=== PATIENT | male | born 1955 | race Caucasian/White ===

== ENCOUNTER → 2016-07-29 | Outpatient (CLI) | payer OTHER ==
--- NOTE | 2016-07-29 12:13 | MR ---
EXAMINATION TYPE: MR shoulder LT wo con DATE OF EXAM: 07/29/2016 8:14 AM COMPARISON: NONE HISTORY: 60-year-old male with left shoulder pain TECHNIQUE: Multiplanar, multisequence imaging of the left shoulder is performed without contrast. FINDINGS: There is some intermediate signal within the intracapsular portion of the long head biceps tendon. No daron tear is identified. Mild fluid seen along its tendon sheath. There is some inhomogeneous signal especially in the superior half of the subscapularis tendon. The m ajority of the subscapularis tendon appears intact. There is mild to moderate degenerative joint space narrowing with marginal spurring and capsular hype rtrophy at the acromioclavicular joint. No significant encroachment on the subacromial space. There is diffuse heterogeneity of both the supraspinatus and infraspinatus tendons. There is bursal s ided fraying with suggestion of a shallow 7 mm long bursal sided tear measuring 8 mm wide along the m id to posterior supraspinatus tendon. In addition, there are findings suspicious for an irregular int rasubstance tear of the mid supraspinatus tendon measuring 1.1 cm long and 8 mm in AP dimension possi erica with articular sided communication. No retracted tear is seen of either the supraspinatus or infraspinatus tendons. There is a mild to moderate subacromial/subdeltoid bursal effusion. No atrophy of the rotator cuff musculature. Evaluation of the glenohumeral joint shows mild diffuse cartilage thinning. The superior labrum is bl unted and degenerative. No paralabral cyst. No Hill-Sachs deformity or os acromiale. No suspicious bone marrow replacement. IMPRESSION: 1. Diffuse rotator cuff tendinosis. There is bursal sided fraying of the supraspinatus with a 7 x 8 m m shallow bursal sided tear of the mid to posterior supraspinatus tendon. 2. In addition, there is suggestion of a 1.1 x 0.8 cm irregular intrasubstance tear of the mid supras pinatus tendon. This may have articular sided communication. There is no retracted tear. 3. No rotator cuff muscle atrophy. Mild to moderate subacromial/subdeltoid bursitis. 4. [id number] AC joint OA, mild intracapsular long head biceps tendinosis, and a degenerative a nd blunted superior labrum.
== END | disposition home or self-care (01) ==
LOC: RADMRIMAIN 07:36
PROVIDERS: ATTEND Orthopaedic Surgery
DX: M75.102 Unspecified rotator cuff tear or rupture of left shoulder, not specified as traumatic (principal); M19.012 Primary osteoarthritis, left shoulder; M67.814 Other specified disorders of tendon, left shoulder